=== PATIENT | female | born 1985 | race Hispanic/Latino ===

== ENCOUNTER 2016-12-06 12:16 | Emergency (ER) | payer OTHER ==
[2016-12-06 13:33] LABS: #Eosinphils 0.2 thou/uL (0.0-0.7); #Lymphocytes 2.3 thou/uL (1.20-3.40); #Monocytes 0.4 thou/uL (0.11-0.59); #Neutrophils 4.6 thou/uL (1.40-6.50); %Basophils 0.6 % (0.0-1.0); %Eosinophils 2.3 % (0.0-10.0); %Lymphocytes 30.8 % (21.0-51.0); Hematocrit 41.6 % (36.0-47.0); Mean Platelet Volume 8.1 fL (7.4-10.4); Red Blood Cell (RBC) Count 4.56 mill/uL (4.20-5.40); White Blood Cell (WBC) Count 7.6 thou/uL (4.8-10.8)
[2016-12-06 14:01] LABS: ALT (SGPT) 14 U/L (8-55); AST (SGOT) 20 U/L (5-34); Acetaminophen Less than 6.0 mcg/mL (10.0-30.0); Alkaline Phosphatase 89 U/L (40-150); Anion Gap 12 mmol/L (10-20); BUN (Urea Nitrogen) 10 mg/dL (7.0-18.7); Bilirubin, Total 0.4 mg/dL (0.2-1.2); CK (CPK) 43 U/L (29-168); Calc. Creatinine Clearance 0 mL/min (70-130); Calcium 9.1 mg/dL (7.8-10.44); Carbon Dioxide 25 mmol/L (22-29); Chloride 106 mmol/L (98-107); Estimated GFR-MDRD 84; Globulin 3.5 g/dL (2.4-3.5); Protein, Total 7.3 g/dL (6.0-8.3); Salicylate Less than 8.0 mg/dL (15.0-30.0)
[2016-12-06 15:01] LABS: Bilirubin Negative (Negative); Blood, Urine Negative (Negative); Glucose, Urine (Dipstick) Negative (Negative); Ketone, Urine Negative (Negative); Nitrite Negative (Negative); Protein, Urine (Dipstick) Negative (Neg-Trace)
[2016-12-06 15:03] LABS: Bacteria/HPF Rare-Few HPF (None Seen); Hyaline Casts/LPF 0-3 HYALINE CAST LPF (0-3 Hyaline); WBC/HPF 0-3 HPF (0-3)
[2016-12-06 15:09] LABS: Amphetamine Not Detected (NotDetected); Methadone Not Detected (NotDetected); Methamphetamine Not Detected (NotDetected)
== END 2016-12-06 18:18 | disposition home or self-care (01) ==
LOC: ERS 12:16
DX: F32.9 Major depressive disorder, single episode, unspecified (principal); F41.9 Anxiety disorder, unspecified; Z79.899 Other long term (current) drug therapy
CPT/HCPCS: 36415; 80053; 80306; 80307; 81003; 81015; 81025; 82550; 84443; 85025; 93005

== ENCOUNTER 2017-07-24 16:21 | Emergency (ER) | payer OTHER ==
[2017-07-24] MEDS ORDERED: Metoclopramide HCl 10 MG/2 ML VIAL ONE (18:08)
[2017-07-24] MEDS ORDERED: methylPREDNISolone Sod Succ/PF 125 MG/2 ML VIAL ONE (18:08)
[2017-07-24] MEDS ORDERED: Water For Inject, Bacteriostat 30 ML ONE (18:08)
[2017-07-24] MEDS ORDERED: diphenhydrAMINE 50 MG/ML VIAL ONE (18:08)
[2017-07-24] MEDS ORDERED: Ketorolac Tromethamine 30 MG/ML VIAL ONE (18:08)
[2017-07-24 18:36] LABS: #Basophils 0.1 thou/uL (0.0-0.2); #Eosinphils 0.1 thou/uL (0.0-0.7); #Lymphocytes 2.6 thou/uL (1.20-3.40); #Monocytes 0.4 thou/uL (0.11-0.59); #Neutrophils 3.9 thou/uL (1.40-6.50); %Basophils 0.9 % (0.0-1.0); %Eosinophils 1.2 % (0.0-10.0); %Lymphocytes 36.3 % (21.0-51.0); %Monocytes 6.1 % (0.0-10.0); %Neutrophils 55.5 % (42.0-75.0); Hemoglobin 14.4 g/dL (12.0-16.0); Mean Corpuscular HGB CONC 33.5 g/dL (32.0-36.0); Mean Corpuscular Hemoglobin 29.4 pg (27.0-31.0); Mean Corpuscular Volume 87.9 fl (81.0-99.0); Mean Platelet Volume 7.8 fL (7.4-10.4); Platelet Count 255 thou/uL (130-400); RBC Distribution Width 12.7 % (11.5-14.5)
[2017-07-24 19:05] LABS: ALT (SGPT) 14 U/L (8-55); AST (SGOT) 23 U/L (5-34); Albumin 4.1 g/dL (3.5-5.0); Alkaline Phosphatase 88 U/L (40-150); Anion Gap 11 mmol/L (10-20); BUN (Urea Nitrogen) 15 mg/dL (7.0-18.7); Bilirubin, Total 0.4 mg/dL (0.2-1.2); Calc. Creatinine Clearance 0 mL/min (70-130); Calcium 9.4 mg/dL (7.8-10.44); Carbon Dioxide 25 mmol/L (22-29); Chloride 107 mmol/L (98-107); Estimated GFR-MDRD 71; Globulin 3.6 g/dL (2.4-3.5); Glucose 95 mg/dL (70-105); Lipase 61 U/L (8-78); Potassium 4.3 mmol/L (3.5-5.1); Protein, Total 7.7 g/dL (6.0-8.3); Sodium 139 mmol/L (136-145)
== END 2017-07-24 20:14 | disposition home or self-care (01) ==
LOC: ERS 16:21
DX: R51 Headache (principal); G43.909 Migraine, unspecified, not intractable, without status migrainosus; F32.9 Major depressive disorder, single episode, unspecified; Z79.899 Other long term (current) drug therapy
CPT/HCPCS: 80053; 83690; 85025; 85652; 86140; 96365; 96375; J1200; J1885; J2765; J2930

== ENCOUNTER 2017-07-27 19:18 | Emergency (ER) | payer OTHER ==
[2017-07-27] MEDS ORDERED: diphenhydrAMINE 50 MG/ML VIAL ONE (19:49)
== END 2017-07-27 20:42 | disposition home or self-care (01) ==
LOC: ERS 19:18
DX: G25.71 Drug induced akathisia (principal); T45.0X5A Adverse effect of antiallergic and antiemetic drugs, initial encounter; G43.909 Migraine, unspecified, not intractable, without status migrainosus; F32.9 Major depressive disorder, single episode, unspecified; Z79.899 Other long term (current) drug therapy
CPT/HCPCS: 96372; J1200

== ENCOUNTER 2017-11-19 20:30 | Outpatient (CLI) | payer OTHER | END 2017-11-19 20:31 | disposition home or self-care (01) | LOC: SLEEPLAB 20:30 | PROVIDERS: ATTEND Student in an Organized Health Care Education/Training Program | DX: G47.33 Obstructive sleep apnea (adult) (pediatric) (principal); R51 Headache; E66.9 Obesity, unspecified; G47.00 Insomnia, unspecified; F32.9 Major depressive disorder, single episode, unspecified; R06.83 Snoring; G47.10 Hypersomnia, unspecified; I10 Essential (primary) hypertension; Z68.41 Body mass index [BMI] 40.0-44.9, adult | CPT/HCPCS: 95810 ==

== ENCOUNTER 2017-11-28 20:30 | Outpatient (CLI) | payer OTHER | END 2017-11-28 20:31 | disposition home or self-care (01) | LOC: SLEEPLAB 20:30 | PROVIDERS: ATTEND Student in an Organized Health Care Education/Training Program | DX: G47.33 Obstructive sleep apnea (adult) (pediatric) (principal); R53.83 Other fatigue; R51 Headache; G47.00 Insomnia, unspecified; E66.9 Obesity, unspecified; F32.9 Major depressive disorder, single episode, unspecified; Z68.41 Body mass index [BMI] 40.0-44.9, adult; G47.10 Hypersomnia, unspecified | CPT/HCPCS: 95811 ==

== ENCOUNTER 2018-07-21 18:40 | Emergency (ER) | payer OTHER ==
--- NOTE | 2018-07-21 20:25 | RAD ---
RADIOGRAPH CHEST 2 VIEWS: DATE: 07/21/2018 HISTORY: 33-year-old female with left-sided acute chest pain FINDINGS: The lungs are clear. The cardiomediastinal silhouette and hilar shadows appear normal. There is no pl eural effusion or pneumothorax. No osseous abnormality is identified. IMPRESSION: Normal
[2018-07-21 20:47] LABS: #Eosinphils 0.1 thou/uL (0.0-0.7); #Lymphocytes 2.9 thou/uL (1.20-3.40); #Monocytes 0.4 thou/uL (0.11-0.59); #Neutrophils 5.4 thou/uL (1.40-6.50); %Basophils 0.5 % (0.0-1.0); %Eosinophils 0.7 % (0.0-10.0); %Lymphocytes 32.7 % (21.0-51.0); %Monocytes 4.5 % (0.0-10.0); %Neutrophils 61.5 % (42.0-75.0); Hemoglobin 14.2 g/dL (12.0-16.0); Mean Corpuscular HGB CONC 32.6 g/dL (32.0-36.0); Mean Corpuscular Hemoglobin 28.5 pg (27.0-31.0); Mean Corpuscular Volume 87.7 fL (78.0-98.0); Mean Platelet Volume 8.4 fL (7.4-10.4); Platelet Count 242 thou/uL (130-400); Red Blood Cell (RBC) Count 4.96 mill/uL (4.20-5.40); White Blood Cell (WBC) Count 8.8 thou/uL (4.8-10.8)
[2018-07-21 21:08] LABS: ALT (SGPT) 13 U/L (8-55); AST (SGOT) 14 U/L (5-34); Alkaline Phosphatase 98 U/L (40-150); Anion Gap 13 mmol/L (10-20); BUN (Urea Nitrogen) 11 mg/dL (7.0-18.7); Bilirubin, Total 0.5 mg/dL (0.2-1.2); CK (CPK) 53 U/L (29-168); Calc. Creatinine Clearance 0 mL/min (70-130); Calcium 9.3 mg/dL (7.8-10.44); Carbon Dioxide 24 mmol/L (22-29); Chloride 105 mmol/L (98-107); Estimated GFR-MDRD 85; Globulin 3.3 g/dL (2.4-3.5); Glucose 126 mg/dL (70-105); Potassium 3.7 mmol/L (3.5-5.1); Protein, Total 7.3 g/dL (6.0-8.3); Sodium 138 mmol/L (136-145)
[2018-07-21] MEDS ORDERED: Ketorolac Tromethamine 60 MG/2 ML VIAL ONE (21:33)
== END 2018-07-21 22:35 | disposition home or self-care (01) ==
LOC: ERS 18:40
DX: M94.0 Chondrocostal junction syndrome [Tietze] (principal); G43.909 Migraine, unspecified, not intractable, without status migrainosus; F32.9 Major depressive disorder, single episode, unspecified; Z79.899 Other long term (current) drug therapy
CPT/HCPCS: 36415; 71046; 80053; 82550; 84484; 85025; 93005; 96372; J1885